=== PATIENT | male | born 1965 | race Caucasian/White ===

== ENCOUNTER 2017-07-06 08:44 | Observation (INO) | payer OTHER ==
[~2017-07-06] VITALS: Ht 175.3 cm; Wt 96.3 kg
[~2017-07-06 08:44] MED LIST: LIDOCAINE 1%/EPINEPHrine 1:100,000 SOLN 20 ML VIAL ONE; LOVA40TA PO; MIDAZOLAM HCL 2 MG/2 ML VIAL ONE; OXYMETAZOLINE HCL 0.05% 15 ML NASAL SPRAY ONE; PROM25TA10 PO; fentaNYL CITRATE 250 MCG/5 ML AMP ONE
[2017-07-06] MEDS ORDERED: POVIDONE IODINE 5% (ANTISEPSIS KIT) 4 APPLICATIONS EACH NARE PRN (09:15)
[2017-07-06] MEDS ORDERED: CHLORHEXIDINE GLUCONATE 2 % 1 PACK (2 CLOTHS) TOPICAL PRN (09:15)
[2017-07-06] MEDS ORDERED: SODIUM CHLORID 0.9% 500 ML IV PRN (09:15)
[2017-07-06] MEDS ORDERED: INSULIN HUMAN REGULAR 1,000 UNITS/10 ML VIAL SQ PRN (09:15)
[2017-07-06] MEDS ORDERED: METOPROLOL TARTRATE 25 MG TAB PO PRN (09:15)
[2017-07-06] MEDS ORDERED: FLUT1SPR5 EACH NARE (09:45)
[2017-07-06] MEDS ORDERED: FEXO15TA PO (09:45)
[2017-07-06] MEDS: LACTATED RINGER'S 1000 ML IV PRN ×2 (09:50→19:55)
[2017-07-06] MEDS ORDERED: FAMOTIDINE 20 MG/2 ML VIAL ONE (11:16)
[2017-07-06] MEDS: AMPICILLIN/SULBAC 3 GM/NS 100 ML IV SCH ×4 (12:10→19:56)
[2017-07-06] MEDS ORDERED: MIDAZOLAM HCL 2 MG/2 ML VIAL ONE (12:17)
[2017-07-06 14:35] VITALS: PULSE 93
[2017-07-06] MEDS ORDERED: *MEPERIDINE 25 MG INJ VIAL PERIprocedural Use ONLY ONE (14:35)
[2017-07-06] MEDS ORDERED: MORPHINE SULFATE 2 MG/ML INJ ONE ×2 (15:08→15:27)
[2017-07-06] MEDS ORDERED: *HYDROmorphone PF 1 MG VIAL PERIprocedural Use ONLY ONE (15:43)
[2017-07-06 16:00] VITALS: BP 172/82; PULSE 63; PULSE 70; RESP 16; TEMP 96.2; O2SAT 98
[2017-07-06] MEDS ORDERED: ACETAMINOPHEN/HYDROcodone 325 MG/5 MG TAB PO PRN (16:00)
[2017-07-06] MEDS ORDERED: *Lactated Ringer's INJ 1,000 ML ONE (16:03)
--- NOTE | 2017-07-06 16:06 | EKG ---
Date Performed: 07/06/2017 Time Performed: 10:10:58 PTAGE: 52 years EKG: Sinus rhythm MODERATE INTRAVENTRICULAR CONDUCTION DELAY BORDERLINE ECG PREVIOUS TRACING : 11/16/2000 20.48 High voltage, possible LVH. DOCTOR: Connor Mccarthy Interpretating Date/Time 07/06/2017 16:05:19
[2017-07-06 17:46] VITALS: O2SAT 98
[2017-07-06] MEDS: ONDANSETRON HCL 4 MG/2 ML VIAL IV PRN ×2 (17:47→23:13)
[2017-07-06 19:30] VITALS: O2SAT 98
[2017-07-06 20:00] VITALS: BP 147/73; PULSE 70; RESP 20; TEMP 98.8; O2SAT 96
[2017-07-06] MEDS: FLUTICASONE PROPIONATE 50 MCG/ACT 16 GM NASAL SPRAY NASAL SCH (21:00)
[2017-07-06] MEDS ORDERED: PRAVASTATIN SOD 40 MG TAB PO SCH (21:00)
[2017-07-06] MEDS: ACETAMINOPHEN/HYDROcodone 325 MG/5 MG TAB PO PRN (21:15)
[2017-07-06] MEDS ORDERED: LACTATED RINGER'S 1000 ML IV SCH (21:30)
[2017-07-07] VITALS: BP 169/92; PULSE 70; RESP 18; TEMP 97.8; O2SAT 94
[2017-07-07] MEDS: ACETAMINOPHEN/HYDROcodone 325 MG/5 MG TAB PO PRN ×3 (01:40→09:31)
[2017-07-07 04:00] VITALS: BP 150/72; PULSE 61; RESP 18; TEMP 98.1; O2SAT 94
[2017-07-07] MEDS: ONDANSETRON HCL 4 MG/2 ML VIAL IV PRN ×2 (05:06→09:30)
[2017-07-07 07:30] VITALS: BP 132/65; PULSE 61; RESP 20; TEMP 97.6; O2SAT 96
[2017-07-07 08:20] VITALS: O2SAT 98
[2017-07-07] MEDS ORDERED: LORATADINE 10 MG TAB PO SCH (09:00)
[2017-07-07] MEDS: FLUTICASONE PROPIONATE 50 MCG/ACT 16 GM NASAL SPRAY NASAL SCH (09:00)
[2017-07-07 10:30] VITALS: RESP 18
[2017-07-07] MEDS ORDERED: LIDOCAINE HCL 1% PF 5 ML SYRINGE OTHER ONE (12:00)
[2017-07-07] MEDS ORDERED: LACTATED RINGER'S 1000 ML INJ 1,000 ML IV ONE (12:00)
[2017-07-07] MEDS ORDERED: SUCCINYLCHOLINE CHLORIDE 100 MG/5 ML SYRINGE IV PUSH ONE (12:00)
[2017-07-07] MEDS ORDERED: ONDANSETRON HCL 4 MG/2 ML VIAL IV PUSH ONE (12:00)
[2017-07-07] MEDS ORDERED: DEXAMETHASONE SOD PHOS 4 MG/ML VIAL IV ONE (12:00)
[2017-07-07] MEDS ORDERED: PROPOFOL 200 MG/20 ML AMP IV ONE (12:00)
--- NOTE | 2017-07-12 08:47 | MP ---
cc: DONOVAN PAVON M.D. DATE OF OPERATION July 06, [address] Donovan Pavon PREOPERATIVE DIAGNOSES 1. Chronic pansinusitis. 2. Sinonasal polyposis. 3. Nasal airway obstruction. 4. Nasal septal deviation. 5. Hypertrophy of inferior turbinates. POSTOPERATIVE DIAGNOSES 1. Chronic pansinusitis. 2. Sinonasal polyposis. 3. Nasal airway obstruction. 4. Nasal septal deviation. 5. Hypertrophy of inferior turbinates. OPERATION PERFORMED 1. Septoplasty. 2. Bilateral submucosal resection of inferior turbinates. 3. Bilateral endoscopic resection of nasal polyps. 4. Bilateral endoscopic total ethmoidectomy. 5. Bilateral endoscopic maxillary antrostomy with debridement of maxillary sinus polyps. 6. Bilateral endoscopic exploration of frontal sinus ducts with balloon sinuplasty. 7. Bilateral endoscopic sphenoidotomy with removal of sphenoid sinus tissue. INDICATIONS Documented in the history and physical. DESCRIPTION OF OPERATION The patient was taken to OR #2 and placed in the supine position. Following induction of general anesthesia and intubation, the nose was packed bilaterally with cotton pledgets saturated in 0.05% oxymetazoline. The nasal septal mucosa and the inferior turbinates were injected with a total of 8 ml 1% Xylocaine with epinephrine 1:100,000. He was then prepped and draped for surgery. Packing was removed and a hemitransfixion incision was made in the left nasal vestibule and through this incision the septal mucosa was elevated bilaterally as far as the rostrum of the sphenoid, followed by removal of a 2 x 2-cm segment of the quadrangular cartilage preserving 1.5-cm dorsal and caudal cartilaginous struts. The bony septum was then removed with Pedro-Arreaga forceps and the Villa septal forceps. The maxillary crest was removed using a 6-mm Tariq chisel and preserving the anterior nasal spine. The incision was then closed with a running suture of 4-0 chromic and the mucosal layers of septum were approximated to each other with a quilting stitch of 4-0 plain gut. The inferior turbinates were addressed next. They were fractured out medially and incisions were made along their inferior surfaces. Through these incisions the submucosal soft tissues were reduced using a curette and preserving the conchal bone. The incisions were then cauterized using suction Bovie at 35 rubio and the remnants of the inferior turbinates were then relateralized to the lateral nasal wall. The remainder of the operation was completed using endoscopic visualization using a Storz 0-degree fiberoptic scope Bilateral examination showed the superior half of the nasal vault to be filled with polypoid tissue obscuring the lateral nasal wall. These polyps were injected with an additional 3 mL of lidocaine and epinephrine on each side and then they were removed using the power microdebrider to allow inspection of the lateral nasal wall. The middle turbinates had been replaced by polypoid tissue. Additional injections were made into the attachments of the middle turbinates as well into the ethmoid cells and uncinate processes bilaterally. The left side was then addressed first beginning with amputation of the middle turbinate using through cutting Blakesley forceps and the power microdebrider. This was removed and included in the specimen labeled left sinus contents. Next the uncinectomy was removed using a sickle knife and then the anterior ethmoid cells were entered bluntly and were broken up using the Blakesley forceps. Bone and soft tissue then were removed using the power microdebrider. This was carried back as far as the basal lamella which was then reduced medially to laterally exposing the posterior ethmoids. These were also exonerated in the same fashion back as far as the rostrum of the sphenoid and preserving the superior nasal turbinate. When this was completed, the maxillary sinus on the left side was addressed. It was probed using a 3-mm olive tip suction and then enlarged with Stammberger forceps and the microdebrider. This gave access to the cavity which was filled with polypoid tissue. This was debrided using an upbiting Blakesley forceps rotated 90 degrees. This was also included in the specimen labeled left sinus contents. The sphenoid sinus then addressed. Ostium was identified and probed using a #10 suction, then enlarged using the power microdebrider and debrided of polypoid tissue. The left side was then irrigated with chilled saline and packed with cotton pledgets saturated in the Oxymetazoline solution which remained in place while the right side was operated in the same fashion beginning with amputation of the middle turbinate, followed by uncinectomy and exenteration of anterior and posterior ethmoid cells, followed by enlargement of the right maxillary ostium and debridement of the cavity and enlargement of both right sphenoid ostium and debridement of that cavity. Tissue removed from these cavities was then included in the specimen labeled right sinus contents. This side was then also irrigated and suctioned, then packed with cotton pledgets saturated in Oxymetazoline. Then the frontal ducts were addressed using the Acclarent balloon sinus technique. The guidewire was advanced into the left frontal sinus, the balloon then advanced over the wire and it was inflated to a pressure of 12 atmospheres superiorly at the midpoint of the duct and inferiorly at the junction with the ethmoid sinuses. The balloon was then removed and the duct was inspected and verified patent all the way into the frontal sinus. The same method was then used to dilate the right frontal duct and sinus. When this was completed all the packing was removed. The cavities were once again irrigated and suctioned. They were filled with Stammberger sinus foam and the inferior one-half of the nose was then filled with 7.5-cm Rapid Rhino nasal packs. Each one was inflated with 7.5 mL of air. The procedure was then terminated and the patient was reversed from anesthesia and taken to Recovery in good condition. There were no complications and blood loss was 600 mL. MD GABRIELA Birch/CARYL /7:08 AM /8:27 AM
== END 2017-07-07 10:35 | disposition home or self-care (01) ==
LOC: PHSDC 08:44 → PH3A 16:31
PROVIDERS: ADMIT Otolaryngology; ATTEND Otolaryngology
DX: J34.89 Other specified disorders of nose and nasal sinuses (principal); J34.2 Deviated nasal septum; J32.4 Chronic pansinusitis; J34.3 Hypertrophy of nasal turbinates; J33.9 Nasal polyp, unspecified; J34.1 Cyst and mucocele of nose and nasal sinus; R13.10 Dysphagia, unspecified; G47.30 Sleep apnea, unspecified; R94.31 Abnormal electrocardiogram [ECG] [EKG]; Z77.22 Contact with and (suspected) exposure to environmental tobacco smoke (acute) (chronic)
CPT/HCPCS: 00160; 30140; 30520; 31259; 31267; 31296; 88305; 88311; 93005; 94762; 96361; 96374; 96376; G0378; J0295; J0330; J1100; J1170; J2175; J2250; J2270; J2405; J3010; J7120